=== PATIENT | female | born 1935 | race Caucasian/White ===

== ENCOUNTER 2018-03-17 22:34 | Inpatient (IN) ==
[2018-03-18] MEDS ORDERED: MORPHINE 4 MG/1 ML VIAL IV PRN ×3 (00:24→11:37)
[2018-03-18] MEDS ORDERED: ONDANSETRON 4 MG/2 ML VIAL IV PRN (00:24)
[2018-03-18] MEDS ORDERED: ZIPRASIDONE 20 MG/1 ML VIAL IM PRN (01:37)
[2018-03-18] MEDS ORDERED: SODIUM CHLORIDE 0.9% 1,000 ML IV SCH (02:30)
[2018-03-18 05:43] LABS: Basophils % 0.2 % (0.0-0.8); Eosinophils # 0.1 10*3/uL (0.0-0.87); Eosinophils % 0.5 % (0.00-10.9); Hematocrit 37.7 VOL% (35.7-47.0); Hemoglobin 12.9 GM/DL (12.0-16.0); Immature Granulocytes % 0.4 %; Immature Granulocytes Absolute 0.06 #; Lymphocytes # 1.5 10*3/uL (1.4-4.0); Lymphocytes % 9.9 % (21.3-54.2); Mean Corpuscular HGB Conc 34.2 GM/DL (32-36); Mean Corpuscular Hemoglobin 30 PG (27-34); Mean Corpuscular Volume 88.1 FL (87-102); Mean Platelet Volume 10.4 FL (9.6-12.0); Monocytes # 1.1 10*3/uL (0.11-0.8); Monocytes % 7.2 % (1.7-12.7); Neutrophils % 81.8 % (38.7-73.9); Platelet Count 221 T/CUMM (130-400); Red Blood Count 4.28 MC/CUMM (3.8-5.5); Red Cell Distribution Width 12.1 % (9.3-17.3); White Blood Count 14.7 T/CUMM (4-12)
[2018-03-18 06:20] LABS: Calcium 8.9 MG/DL (8.5-10.1); Osmolality,Calculated 273.1 MOS/KG (273-304); Potassium 2.6 MMOL/L (3.5-5.1)
[2018-03-18] MEDS ORDERED: ceFAZolin 2,000 MG in PREMIX 1 EACH IV ONE (07:01)
[2018-03-18] MEDS ORDERED: VANCOMYCIN INJ 1,000 MG in SODIUM CHLORIDE 0.9% 250 ML IV ONE (07:30)
[2018-03-18] MEDS: POTASSIUM CHLORIDE RIDER 10 MEQ in PREMIX 1 EACH IV SCH ×3 (07:54→20:56)
[2018-03-18] MEDS ORDERED: BACITRACIN OINT 0.9 GM PACK TOP ONE (10:00)
[2018-03-18] MEDS ORDERED: TRANEXAMIC ACID 1,000 MG/10 ML VIAL ONE (10:15)
[2018-03-18] MEDS ORDERED: MAGNESIUM HYDROXIDE SUSP 30 ML UDCUP PO PRN (11:37)
[2018-03-18] MEDS ORDERED: oxyCODONE IR 5 MG TABLET PO PRN ×2 (11:37)
[2018-03-18] MEDS ORDERED: LORazepam 1 MG TABLET PO PRN (11:39)
[2018-03-18] MEDS ORDERED: BISACODYL 5 MG TABLET PO PRN (11:39)
[2018-03-18] MEDS ORDERED: POTASSIUM CHLORIDE INJ 40 MEQ in DEXTROSE 5% LACTATED RINGERS 1,000 ML IV SCH (12:00)
[2018-03-18] MEDS ORDERED: SEVOFLURANE 1 UNIT/15 MINUTE INH ONE (13:11)
[2018-03-18] MEDS ORDERED: fentaNYL 100 MCG/2 ML VIAL ONE (13:11)
[2018-03-18] MEDS ORDERED: PROPOFOL 200 MG/20 ML VIAL IV ONE (13:11)
[2018-03-18] MEDS ORDERED: ePHEDrine 50 MG/ML AMP ONE (13:12)
[2018-03-18] MEDS ORDERED: ROCURONIUM 100 MG/10 ML VIAL IV ONE (13:12)
[2018-03-18] MEDS ORDERED: ACETAMINOPHEN 1,000 MG/100 ML VIAL IV ONE (13:12)
[2018-03-18] MEDS ORDERED: POTASSIUM CHLORIDE RIDER 10 MEQ in PREMIX 1 EACH IV PRN (14:52)
[2018-03-18] MEDS ORDERED: POTASSIUM CHLORIDE 20 MEQ TABLET PO ONE ×2 (14:55→17:11)
[2018-03-18] MEDS: DEXT 5% NACL 0.9% KCL 40 MEQ 40 MEQ/1,000 ML BAG IV SCH ×2 (16:04→23:41)
[2018-03-18] MEDS: KETOROLAC 15 MG/1 ML VIAL IV SCH ×3 (16:06→23:36)
[2018-03-18] MEDS: ceFAZolin 2,000 MG in PREMIX 1 EACH IV SCH (18:17)
[2018-03-18] MEDS: ACETAMINOPHEN 500 MG TABLET PO SCH ×2 (18:18→22:26)
[2018-03-18] MEDS: DOCUSATE SODIUM 100 MG CAPSULE PO SCH (20:53)
[2018-03-18] MEDS: QUEtiapine 100 MG TABLET PO SCH (20:53)
[2018-03-18] MEDS: DONEPEZIL 10 MG TABLET PO SCH (20:53)
[2018-03-18] MEDS: MEMANTINE 10 MG TABLET PO SCH (20:53)
[2018-03-19] MEDS: ceFAZolin 2,000 MG in PREMIX 1 EACH IV SCH (00:44)
[2018-03-19 01:25] LABS: Apearance,Urine Slightly Hazy (Clear); Bacteria,Urine Occasional /HPF (Few); Bilirubin,Urine Negative (Negative); Blood, Urine Small mg/dL (Negative); Glucose,Urine (UA) Negative (Negative); Hyaline Casts,Urine 3 /LPF (0-3); Ketones,Urine Negative (Negative); Nitrite,Urine Negative (Negative); Protein,Urine Negative; RBC,Urine 10 /HPF (0-4); Squamous Epithelial Cell,Urine Occasional /HPF (0-10); Urine Color Yellow (Yellow); Urine Specific Gravity 1.021 (1.001-1.035); Urine Urobilinogen < 2.0 EU/DL (0.2-1.0); WBC,Urine 139 /HPF (0-6)
[2018-03-19] MEDS: FONDAPARINUX 2.5 MG/0.5 ML SYRINGE SUBCUT SCH (04:39)
[2018-03-19] MEDS: ACETAMINOPHEN 500 MG TABLET PO SCH ×2 (04:39→09:58)
[2018-03-19 04:56] LABS: Basophils % 0.2 % (0.0-0.8); Eosinophils # 0.4 10*3/uL (0.0-0.87); Eosinophils % 4.1 % (0.00-10.9); Hematocrit 32.4 VOL% (35.7-47.0); Hemoglobin 10.8 GM/DL (12.0-16.0); Immature Granulocytes % 0.3 %; Immature Granulocytes Absolute 0.03 #; Lymphocytes # 1.3 10*3/uL (1.4-4.0); Lymphocytes % 14.5 % (21.3-54.2); Mean Corpuscular HGB Conc 33.3 GM/DL (32-36); Mean Corpuscular Hemoglobin 31 PG (27-34); Mean Corpuscular Volume 91.5 FL (87-102); Mean Platelet Volume 10.2 FL (9.6-12.0); Monocytes # 0.8 10*3/uL (0.11-0.8); Monocytes % 8.4 % (1.7-12.7); Neutrophils # 6.6 10*3/uL (1.4-7.4); Neutrophils % 72.5 % (38.7-73.9); Platelet Count 174 T/CUMM (130-400); Red Blood Count 3.54 MC/CUMM (3.8-5.5); Red Cell Distribution Width 12.6 % (9.3-17.3); White Blood Count 9.2 T/CUMM (4-12)
[2018-03-19 05:21] LABS: Calcium 7.3 MG/DL (8.5-10.1); Osmolality,Calculated 283.3 MOS/KG (273-304); Potassium 4.3 MMOL/L (3.5-5.1)
[2018-03-19] MEDS: KETOROLAC 15 MG/1 ML VIAL IV SCH (05:50)
[2018-03-19] MEDS: CHLORTHALIDONE 25 MG TABLET PO SCH (09:58)
[2018-03-19] MEDS: clonazePAM 0.5 MG TABLET PO SCH ×2 (09:58→20:38)
[2018-03-19] MEDS: DOCUSATE SODIUM 100 MG CAPSULE PO SCH ×2 (09:59→20:38)
[2018-03-19] MEDS: MEMANTINE 10 MG TABLET PO SCH ×2 (09:59→20:37)
[2018-03-19] MEDS: DEXT 5% NACL 0.9% KCL 40 MEQ 40 MEQ/1,000 ML BAG IV SCH (10:22)
[2018-03-19] MEDS ORDERED: ACETAMINOPHEN 325 MG TABLET PO PRN (11:38)
[2018-03-19] MEDS: LEVOFLOXACIN 250 MG TABLET PO SCH (13:15)
[2018-03-19] MEDS: CELECOXIB 200 MG CAPSULE PO SCH (17:41)
[2018-03-19] MEDS: QUEtiapine 100 MG TABLET PO SCH (20:37)
[2018-03-19] MEDS: DONEPEZIL 10 MG TABLET PO SCH (20:37)
[2018-03-20] MEDS: FONDAPARINUX 2.5 MG/0.5 ML SYRINGE SUBCUT SCH (06:09)
[2018-03-20 07:09] LABS: Basophils % 0.4 % (0.0-0.8); Eosinophils # 0.5 10*3/uL (0.0-0.87); Eosinophils % 4.6 % (0.00-10.9); Hematocrit 34.8 VOL% (35.7-47.0); Hemoglobin 11.7 GM/DL (12.0-16.0); Immature Granulocytes % 0.5 %; Immature Granulocytes Absolute 0.05 #; Lymphocytes # 1.4 10*3/uL (1.4-4.0); Mean Corpuscular HGB Conc 33.6 GM/DL (32-36); Mean Corpuscular Hemoglobin 31 PG (27-34); Mean Corpuscular Volume 91.3 FL (87-102); Mean Platelet Volume 9.8 FL (9.6-12.0); Monocytes # 1.1 10*3/uL (0.11-0.8); Monocytes % 10.7 % (1.7-12.7); Neutrophils # 6.9 10*3/uL (1.4-7.4); Neutrophils % 69.8 % (38.7-73.9); Platelet Count 177 T/CUMM (130-400); Red Blood Count 3.81 MC/CUMM (3.8-5.5); Red Cell Distribution Width 12.8 % (9.3-17.3); White Blood Count 9.9 T/CUMM (4-12)
[2018-03-20] MEDS: CELECOXIB 200 MG CAPSULE PO SCH ×2 (08:41→10:33)
[2018-03-20] MEDS: DOCUSATE SODIUM 100 MG CAPSULE PO SCH ×2 (08:42→20:43)
[2018-03-20] MEDS: MEMANTINE 10 MG TABLET PO SCH ×3 (08:42→20:43)
[2018-03-20] MEDS: LEVOFLOXACIN 250 MG TABLET PO SCH ×2 (08:42→10:33)
[2018-03-20] MEDS: CHLORTHALIDONE 25 MG TABLET PO SCH ×2 (08:42→10:33)
[2018-03-20] MEDS: clonazePAM 0.5 MG TABLET PO SCH ×2 (10:33→20:44)
[2018-03-20] MEDS: DONEPEZIL 10 MG TABLET PO SCH (20:43)
[2018-03-20] MEDS: QUEtiapine 100 MG TABLET PO SCH (20:46)
[2018-03-21] MEDS: FONDAPARINUX 2.5 MG/0.5 ML SYRINGE SUBCUT SCH (05:01)
[2018-03-21 06:10] LABS: Basophils % 0.5 % (0.0-0.8); Eosinophils # 0.3 10*3/uL (0.0-0.87); Hematocrit 33.6 VOL% (35.7-47.0); Hemoglobin 11.2 GM/DL (12.0-16.0); Immature Granulocytes % 0.3 %; Immature Granulocytes Absolute 0.03 #; Lymphocytes # 1.7 10*3/uL (1.4-4.0); Lymphocytes % 19.1 % (21.3-54.2); Mean Corpuscular HGB Conc 33.3 GM/DL (32-36); Mean Corpuscular Hemoglobin 31 PG (27-34); Mean Corpuscular Volume 91.6 FL (87-102); Mean Platelet Volume 10.1 FL (9.6-12.0); Monocytes # 1.1 10*3/uL (0.11-0.8); Neutrophils # 5.8 10*3/uL (1.4-7.4); Neutrophils % 65.1 % (38.7-73.9); Platelet Count 180 T/CUMM (130-400); Red Blood Count 3.67 MC/CUMM (3.8-5.5); Red Cell Distribution Width 12.6 % (9.3-17.3); White Blood Count 8.9 T/CUMM (4-12)
[2018-03-21] MEDS: LEVOFLOXACIN 250 MG TABLET PO SCH (09:39)
[2018-03-21] MEDS: MEMANTINE 10 MG TABLET PO SCH ×2 (09:39→20:46)
[2018-03-21] MEDS: DOCUSATE SODIUM 100 MG CAPSULE PO SCH ×2 (09:39→20:46)
[2018-03-21] MEDS: CHLORTHALIDONE 25 MG TABLET PO SCH (09:39)
[2018-03-21] MEDS: CELECOXIB 200 MG CAPSULE PO SCH (09:39)
[2018-03-21] MEDS: QUEtiapine 100 MG TABLET PO SCH (20:46)
[2018-03-21] MEDS: DONEPEZIL 10 MG TABLET PO SCH (20:46)
[2018-03-21] MEDS ORDERED: clonazePAM 0.5 MG TABLET PO SCH (21:00)
[2018-03-22] MEDS: FONDAPARINUX 2.5 MG/0.5 ML SYRINGE SUBCUT SCH (05:08)
[2018-03-22 08:32] LABS: Calcium 8.1 MG/DL (8.5-10.1); Potassium 3.6 MMOL/L (3.5-5.1)
[2018-03-22] MEDS: MEMANTINE 10 MG TABLET PO SCH (10:13)
[2018-03-22] MEDS: LEVOFLOXACIN 250 MG TABLET PO SCH (10:13)
[2018-03-22] MEDS: DOCUSATE SODIUM 100 MG CAPSULE PO SCH (10:13)
[2018-03-22] MEDS: CHLORTHALIDONE 25 MG TABLET PO SCH (10:13)
[2018-03-22 17:06] VITALS: BP 154/64
[2018-03-25] MEDS ORDERED: Alendronate Sodium [Fosamax] 70 MG PO SCH (09:00)
== END 2018-03-22 19:35 | disposition swing bed (61) | DRG 470 ==
LOC: N.3E 03-18 00:03 → SUATTDRO 03-18 00:24
PROVIDERS: ADMIT Internal Medicine; ATTEND Internal Medicine Cardiovascular Disease